=== PATIENT | female | born 1980 ===

== ENCOUNTER 2016-09-28 12:08 | Emergency (ER) | payer OTHER ==
[2016-09-28 12:31] VITALS: BP 98/66; PULSE 88; RESP 18; TEMP 98.5; O2SAT 100
--- NOTE | 2016-09-28 14:01 | ED PDOC ---
HPI: General Adult Time Seen by Provider: 09/28/16 13:08 Chief Complaint (Nursing): Female Genitourinary History Per: Patient Additional Complaint(s): Pt. states today she developed vaginal spotting and pelvic cramping. States she is currently . LMP: 08/12/16 but has not had any care yet. She is scheduled to see Dr. Corcoran on 10/05/16 for her first OB visit. Denies N/V, weakness, hx of ectopic , dysuria, hematuria, fever. Past Medical History Reviewed: Historical Data, Nursing Documentation, Vital Signs Vital Signs: Last Vital Signs Temp 98.5 F 09/28/16 12:26 Pulse 88 09/28/16 12:26 Resp 18 09/28/16 12:26 BP 98/66 L 09/28/16 12:26 Pulse Ox 100 09/28/16 14:02 - Medical History Other PMH: - Surgical History Surgical History: (x 2) - Family History Family History: States: No Known Family Hx - Immunization History Hx Tetanus Toxoid Vaccination: No Hx Influenza Vaccination: No Hx Pneumococcal Vaccination: No - Home Medications Home Medications: Ambulatory Orders Medication Instructions Recorded Cyclobenzaprine [Flexeril] 5 mg PO Q8 PRN #15 tab 08/15/15 Naproxen [Naprosyn] 1 tab PO BID PRN #30 tab 08/15/15 Multivit/Folic Acid/I 1 tab PO DAILY #30 tab 09/28/16 [ Plus] - Allergies Allergies/Adverse Reactions: Allergies Allergy/AdvReac Type Severity Reaction Status Date / Time No Known Allergies Allergy Verified 02/14/15 14:39 Review of Systems ROS Statement: Except As Marked, All Systems Reviewed And Found Negative Genitourinary Female: Positive for: Vaginal Bleeding, Pelvic Pain Physical Exam - Reviewed Nursing Documentation Reviewed: Yes Vital Signs Reviewed: Yes - Physical Exam Appears: Positive for: Well, Non-toxic, No Acute Distress Head Exam: Positive for: ATRAUMATIC, NORMAL INSPECTION, NORMOCEPHALIC Skin: Positive for: Normal Color, Warm. Negative for: Rash Eye Exam: Positive for: EOMI, Normal appearance, PERRL ENT: Positive for: Normal ENT Inspection Neck: Positive for: Normal, Painless ROM Cardiovascular/Chest: Positive for: Regular Rate, Rhythm Respiratory: Positive for: CNT, Normal Breath Sounds Gastrointestinal/Abdominal: Positive for: Normal Exam, Bowel Sounds, Soft. Negative for: Tenderness Back: Positive for: Normal Inspection Extremity: Positive for: Normal ROM Neurologic/Psych: Positive for: Alert, Oriented - Laboratory Results Result Diagrams: 09/28/16 14:14 09/28/16 14:14 - ECG O2 Sat by Pulse Oximetry: 100 - Progress ED Course And Treament: Labs ordered. OB US ordered. US: Single live intrauterine gestation with mean gestational age of 6 weeks and 0 days. Estimated date of delivery by ultrasound is 05/24/2017. Pt. informed of results Disposition - Clinical Impression Clinical Impression: Threatened - Patient ED Disposition Is Patient to be Admitted: No - Disposition Disposition: Routine/Home Disposition Time: 16:40 Condition: STABLE Prescriptions: Multivit/Folic Acid/I [ Plus] 1 tab PO DAILY #30 tab Instructions: Threatened Miscarriage (ED) Print Language: DIVEHI
[2016-09-28 14:31] LABS: BASO % 0.3 % (0.0-2.0); EOS # 0.1 K/uL (0.0-0.7); EOS % 1.3 % (0.0-4.0); HEMOGLOBIN 12.3 g/dL (12.0-16.0); LYMPH # 1.9 K/uL (1.0-4.3); LYMPH % 25.8 % (20.0-40.0); MEAN CELL VOLUME 93.2 fl (81.0-99.0); MEAN CORPUSCULAR HEMOGLOBIN 31.2 pg (27.0-31.0); MEAN CORPUSCULAR HGB CONC 33.5 g/dL (33.0-37.0); MEAN PLATELET VOLUME 7.8 fl (7.2-11.7); MONO # 0.5 K/uL (0.0-0.8); MONO % 7.1 % (0.0-10.0); NEUT % 65.5 % (50.0-75.0); RBC 3.94 Mil/uL (3.80-5.20); RED CELL DISTRIBUTION WIDTH 12.9 % (11.5-14.5); WHITE BLOOD COUNT 7.6 K/uL (4.8-10.8)
[2016-09-28 14:38] LABS: SQUAMOUS EPITHIAL 6 /hpf (0-5); URINE AMORPHOUS SEDIMENT RARE /ul (<OCC); URINE BILIRUBIN NEGATIVE (NEGATIVE); URINE BLOOD SMALL (NEGATIVE); URINE CLARITY SLIGHTY-CLOUDY (Clear); URINE COLOR YELLOW (YELLOW); URINE GLUCOSE (UA) NEG (Normal); URINE LEUKOCYTE ESTERASE NEG Leu/uL (Negative); URINE NITRATE NEGATIVE (NEGATIVE); URINE PROTEIN NEGATIVE (NEGATIVE); URINE UROBILINOGEN 0.2-1.0 mg/dL (0.2-1.0)
[2016-09-28 14:47] LABS: ALB/GLOB RATIO 1.4 (1.0-2.1); ALBUMIN 3.9 g/dL (3.5-5.0); ALT/SGPT 31 U/L (9-52); AST/SGOT 19 U/L (14-36); BLOOD UREA NITROGEN 12 mg/dl (7-17); CALCIUM 8.6 mg/dL (8.4-10.2); GFR AFRICAN-AMERICAN > 60; GFR NON-AFRICAN AMERICAN > 60
--- NOTE | 2016-09-28 16:25 | US ---
PROCEDURE: OB Pelvic Ultrasound HISTORY: pelvic pain COMPARISON: None available. FINDINGS: UTERUS: Gestational sac: Single intrauterine gestation. Heart rate: 118 bpm. age (Ultrasound estimated): 6 weeks and 0 days Anita-gestational hemorrhage: None. Date of delivery (Ultrasound estimated) : 05/24/2017 Uterus measures 10.8 x 5.0 x 6.8 cm. Normal in size and appearance. CERVIX: Long and closed. No cervical abnormality seen. RIGHT OVARY: Measures 3.6 x 2.0 x 2.7 cm. No mass lesion. Normal flow. LEFT OVARY: Not visualized. FREE FLUID: None. OTHER FINDINGS: None. IMPRESSION: Single live intrauterine gestation with mean gestational age of 6 weeks and 0 days. Estimated date of delivery by ultrasound is 05/24/2017. The ultrasound dates correspond with the clinical dates.
== END 2016-09-28 16:56 | disposition home or self-care (01) ==
LOC: H.ER 12:08
DX: O20.0 Threatened abortion (principal); Z3A.01 Less than 8 weeks gestation of pregnancy